=== PATIENT | female | born 1950 | race Caucasian/White ===

== ENCOUNTER 2020-04-04 16:49 | Emergency (ER) | payer MEDICARE, BC ==
[~2020-04-04] VITALS: Ht 157.5 cm; Wt 76.7 kg
--- NOTE | 2020-04-04 17:40 | NUR ---
PATIENT TO ROOM 7
[2020-04-04 17:53] LABS: BASOPHILS # (AUTO) 0.1 (0.0-0.1); BASOPHILS % 0.6 % (0.0-1.0); EOSINOPHILS # (AUTO) 0.1 (0.0-0.4); EOSINOPHILS % 0.9 % (0.0-6.0); LYMPHOCYTES # (AUTO) 1.1 (1.0-3.2); LYMPHOCYTES % 11.6 % (18.0-39.1); MEAN CORPUSCULAR HEMOGLOBIN 18.5 pg (28-32); MEAN CORPUSCULAR VOLUME 66.1 fL (81-99); MONOCYTES # (AUTO) 0.8 (0.2-0.8); MONOCYTES % 7.8 % (4.4-11.3); NEUTROPHILS # (AUTO) 7.7 (2.1-6.9); NEUTROPHILS % 78.7 % (38.7-80.0); PLATELET COUNT 498 x10e3/uL (140-360); RED BLOOD COUNT 3.78 x10e6/uL (3.6-5.1); RED CELL DISTRIBUTION WIDTH 16.1 % (11.7-14.4)
[2020-04-04 18:09] LABS: ALBUMIN/GLOBULIN RATIO 1.3 (0.8-2.0); ANION GAP 18.5 mmol/L (8-16); CALCIUM 9.4 mg/dL (8.4-10.2); CREATININE, SERUM 1.14 mg/dL (0.57-1.11); POTASSIUM 3.5 mmol/L (3.5-5.1)
--- NOTE | 2020-04-04 18:59 | Emergency Department Note ---
History of Present Illnes History of Present Illness Chief Complaint: General Medicine Complaints History of Present Illness This is a 69 year old female presents to the ED for gen weakness with pre-syncopal episode yesterday x 2. Denies LOC or CP. 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 Any updates have been documented here. Past Medical History Recent Fever: No Clinical Suspicion of Infectio: No New/Unexplained Change in Ment: No Past Medical History: Hypertension, Hyperlipedemia Past Surgical History: Appendectomy, Hysterectomy, T&A Other Surgery: BREAST BIOPSIES Social History Smoking Cessation: Never Smoker Counseling Performed: No Alcohol Use: None Any Illegal Drug Use: No TB Exposure/Symptoms: No Physically hurt or threatened: No Other Last Tetanus: OOD Any Pre-Existing Lines (PICC,: No Is patient up to date on immun: Yes Last Flu: UTD Last Pneumovax: UTD Review of Systems Review of Systems Constitutional: Reports weakness EENTM: Reports no symptoms Cardiovascular: Reports no symptoms Respiratory: Reports no symptoms Gastrointestinal: Reports no symptoms Genitourinary: Reports no symptoms Musculoskeletal: Reports no symptoms Integumentary: Reports no symptoms Neurological: Reports no symptoms Psychological: Reports no symptoms Endocrine: Reports no symptoms Hematological/Lymphatic: Reports no symptoms Physical Exam Related Data Allergies: Coded Allergies: No Known Allergies (Unverified , 04/04/20) Triage Vital Signs Vital Signs Date Time Temp Pulse Resp B/P (MAP) Pulse Ox O2 Delivery O2 Flow Rate FiO2 04/04/20 16:59 97.8 92 16 135/79 100 Physical Exam CONSTITUTIONAL Constitutional: Present well-developed, Present well-nourished HENT HENT: Present normocephalic, Present atraumatic, Present oropharynx clear/moist, Present nose normal HENT L/R: Present left ext ear normal, Present right ext ear normal EYES Eyes: Reports PERRL, Reports conjunctivae normal NECK Neck: Present ROM normal PULMONARY Pulmonary: Present effort normal, Present breath sounds normal CARDIOVASCULAR Cardiovascular: Present regular rhythm, Present heart sounds normal, Present ca pillary refill normal, Present normal rate GASTROINTESTINAL Abdominal: Present soft, Present nontender, Present bowel sounds normal GENITOURINARY Genitourinary: Present exam deferred SKIN Skin: Present pale MUSCULOSKELETAL Musculoskeletal: Present ROM normal NEUROLOGICAL Neurological: Present alert, Present oriented x 3, Present no gross motor or sensory deficits PSYCHOLOGICAL Psychological: Present mood/affect normal, Present judgement normal Results Laboratory Result Diagram: 04/04/20 1735 04/04/20 1735 Laboratory Laboratory Tests Test 04/04/20 17:35 White Blood Count 9.79 x10e3/uL (4.8-10.8) Red Blood Count 3.78 x10e6/uL (3.6-5.1) Hemoglobin 7.0 g/dL (12.0-16.0) Hematocrit 25.0 % (34.2-44.1) Mean Corpuscular Volume 66.1 fL (81-99) Mean Corpuscular Hemoglobin 18.5 pg (28-32) Mean Corpuscular Hemoglobin Concent 28.0 g/dL (31-35) Red Cell Distribution Width 16.1 % (11.7-14.4) Platelet Count 498 x10e3/uL (140-360) Neutrophils (%) (Auto) 78.7 % (38.7-80.0) Lymphocytes (%) (Auto) 11.6 % (18.0-39.1) Monocytes (%) (Auto) 7.8 % (4.4-11.3) Eosinophils (%) (Auto) 0.9 % (0.0-6.0) Basophils (%) (Auto) 0.6 % (0.0-1.0) Neutrophils # (Auto) 7.7 (2.1-6.9) Lymphocytes # (Auto) 1.1 (1.0-3.2) Monocytes # (Auto) 0.8 (0.2-0.8) Eosinophils # (Auto) 0.1 (0.0-0.4) Basophils # (Auto) 0.1 (0.0-0.1) Absolute Immature Granulocyte (auto 0.04 x10e3/uL (0-0.1) Sodium Level 139 mmol/L (136-145) Potassium Level 3.5 mmol/L (3.5-5.1) Chloride Level 103 mmol/L (98-107) Carbon Dioxide Level 21 mmol/L (22-29) Anion Gap 18.5 mmol/L (8-16) Blood Urea Nitrogen 15 mg/dL (7-26) Creatinine 1.14 mg/dL (0.57-1.11) Estimat Glomerular Filtration Rate 47 ML/MIN (60-) BUN/Creatinine Ratio 13 (6-25) Glucose Level 108 mg/dL (74-118) Calcium Level 9.4 mg/dL (8.4-10.2) Total Bilirubin 0.4 mg/dL (0.2-1.2) Aspartate Amino Transf (AST/SGOT) 28 IU/L (5-34) Alanine Aminotransferase (ALT/SGPT) 42 IU/L (0-55) Alkaline Phosphatase 117 IU/L (40-150) Total Protein 7.1 g/dL (6.5-8.1) Albumin 4.0 g/dL (3.5-5.0) Globulin 3.1 g/dL (2.3-3.5) Albumin/Globulin Ratio 1.3 (0.8-2.0) Lab results reviewed: Yes Procedures 12 Lead ECG Interpretation ECG Interpretation : ECG: ECG 1 Centrifugal Chiller Technician: Interpreted by ED physician Prior ECG tracings: reviewed Rhythm: sinus rhythm Rate: normal QRS axis: normal ST segments normal: Yes T waves normal: Yes Other findings: LVH Clinical Impression: non-specific ECG Assessment & Plan Medical Decision Making MDM 69 yof presents to the ED for pre-syncopal episode. EKG reviewed without ectopy or arrhythmia. HgB 7.0 ,Patient transfused 2 units . Hemodynamically stable. GI bleed considered but patient without symptoms. Plan to discharge and f/u with heme/onc Assessment & Plan Final Impression: (1) Weakness (2) Anemia (3) Abnormal renal function Last Vital Signs Date Time Temp Pulse Resp B/P (MAP) Pulse Ox O2 Delivery O2 Flow Rate FiO2 04/04/20 17:40 18 141/63 04/04/20 16:59 97.8 92 100 RENE HENRY DO Apr 04, 2020 18:59
--- NOTE | 2020-04-04 19:06 | NUR ---
Seen pt on bed, lying comfortable. No c/o SOB or CP. VSS.
[2020-04-04] MEDS ORDERED: SODIUM CHLORIDE 0.9% 250ML 250 ML IV ONE (19:30)
--- NOTE | 2020-04-04 20:10 | NUR ---
Blood consent signed, any adverse reaction during transfusion has been explained to the patient & was able verbalize understanding. No further c/o at this time.
--- NOTE | 2020-04-04 20:35 | NUR ---
1st unit hung with 2nd RN dowel pin man at bedside. VSS
--- NOTE | 2020-04-04 22:30 | NUR ---
2nd unit of PRBC hung with Kvng AUGUSTIN as 2nd hotel reservation agent. Pt awake & alert,VSS.
--- NOTE | 2020-04-05 00:16 | NUR ---
Blood trnasfusion completed. No adverse reaction or distress noted. Pt awake and alert, VSS.
[2020-04-05 00:55] VITALS: BP 123/56
== END 2020-04-05 00:58 | disposition home or self-care (01) ==
LOC: ER 16:49
DX: R53.1 Weakness (principal); D64.9 Anemia, unspecified; R94.4 Abnormal results of kidney function studies
CPT/HCPCS: 36415; 80053; 85025; 86850; 86900; 86920; 99283; J7050; P9016